=== PATIENT | female | born 1995 | race Two or more races ===

== ENCOUNTER 2018-02-23 23:12 | Emergency (ER) | payer MEDICAID ==
[~2018-02-23] VITALS: Ht 170.2 cm; Wt 47.8 kg
[~2018-02-23 23:12] MED LIST: NO HOME MEDS; ONDA4TAB9 PO
[2018-02-23 23:16] VITALS: BP 122/70
[2018-02-24] MEDS ORDERED: CLIN150C8 PO (00:28)
== END 2018-02-24 00:50 | disposition home or self-care (01) ==
LOC: ER 23:13
DX: K04.7 Periapical abscess without sinus (principal); J45.909 Unspecified asthma, uncomplicated
CPT/HCPCS: 99283